=== PATIENT | female | born 1970 | race Caucasian/White ===

== ENCOUNTER → 2024-12-08 | Outpatient (REF) | payer OTHER ==
[~2024-12-08] MED LIST: BIOTIN10000 MC1; LISINOPRIL-HCT1 EAC2 PO; MULTI-VITAMIN1 EACH PO; PANTOPRAZOLE SO40 MG PO
== END ==
LOC: DX 08:40
PROVIDERS: ATTEND Nurse Practitioner Family
DX: R13.10 Dysphagia, unspecified (principal); K21.9 Gastro-esophageal reflux disease without esophagitis; K44.9 Diaphragmatic hernia without obstruction or gangrene
CPT/HCPCS: 74220